=== PATIENT | female | born 1980 | race Caucasian/White ===

== ENCOUNTER 2019-05-09 12:14 | Outpatient (CLI) | payer SELFPAY ==
[~2019-05-09] VITALS: Ht 170.2 cm; Wt 74.1 kg
[2019-05-09 12:18] VITALS: BP 96/71
--- NOTE | 2019-05-09 15:00 | NUR ---
TIME OUT: 1413 LIDOCAINE: 1414 INCISION: 1416 IN & DRAININ TOTAL AMOUNT DRAINED: 2650 CALLED TO REPORT AMOUNT TO DR. HOLLEY. 1 WEEK FOLLOW UP APPOINTMENT MADE FOR PT. IN [place] WITH DR. WINSLOW. PER DR. HOLLEY.
--- NOTE | 2019-05-09 15:23 | Diagnostic Imaging Report ---
INDICATION: Alcoholic hepatitis. TECHNIQUE: Limited real-time grayscale images were obtained of the abdomen in various projections. FINDINGS: There is moderate abdominal ascites. Rock was placed for Dr. De Los Santos prior to paracentesis. IMPRESSION: Fluoroscopic marking prior to paracentesis as described. Dictated by: Dictated on workstation # [id number]
[2019-05-09 16:10] LABS: AMYLASE,BODY FLUID < 3 U/L; GLUCOSE,BODY FLUID 112 MG/DL; LDH,BODY FLUID < 30 U/L; TOTAL PROTEIN,BODY FLUID < 0.8 G/DL
[2019-05-09 16:40] LABS: BODY FLUID APPEARENCE CLEAR; BODY FLUID COLOR YELLOW; BODY FLUID RBC COUNT 9 /uL; BODY FLUID SOURCE PERITON; BODY FLUID WBC TOTAL COUNT 8 /uL
[2019-05-09 16:41] LABS: LYMPHOCYTES,BODY FLUID 65 %
--- NOTE | 2019-05-09 19:37 | OPERATIVE REPORT ---
DATE OF SERVICE: 05/09/2019 PREOPERATIVE DIAGNOSIS: Symptomatic ascites. POSTOPERATIVE DIAGNOSIS: Symptomatic ascites. PROCEDURE: Ultrasound-guided paracentesis. SURGEON: Magan De Los Santos DO ANESTHESIA: 1% lidocaine, 5 mL. COMPLICATIONS: None. INDICATIONS: The patient is a 38-year-old female with symptomatic ascites. She understands risks and benefits of procedure and wished to proceed with procedure. Consent was signed in the chart. DESCRIPTION OF PROCEDURE: The patient was placed in the supine position. Ultrasound was used to isolate the largest pocket of fluid within the abdomen. Large pocket was found in the left lower quadrant. The patient was prepped and draped in sterile fashion. Timeout was performed. A local anesthetic was infiltrated. An 11 blade scalpel was used to make a stab incision. The [id number] needle and catheter were then advanced through the abdominal wall until straw colored fluid was returned. The catheter was advanced and the needle was removed. A total of 2650 mL of straw colored fluid was withdrawn off the abdomen. The catheter was then removed and sterile bandage was applied. The patient tolerated procedure well without any complications. Fluid was sent for analysis and cytology. RECOMMENDATIONS: The patient is to follow up with Dr. Eden Solitario. Job ID: [id number] DocumentID: [id number] Dictated Date: 05/09/2019 15:15:43 Peanut Separator Date: 05/09/2019 19:36:18 Dictated By: MAGAN DE LOS SANTOS DO
== END 2019-05-09 15:00 | disposition home or self-care (01) ==
LOC: SDC 12:14
PROVIDERS: ATTEND Surgery
DX: K70.11 Alcoholic hepatitis with ascites (principal)
CPT/HCPCS: 49082; 76942; 82150; 82438; 82570; 82945; 83615; 84157; 87070; 87075; 87205; 89051